=== PATIENT | female | born 1990 | race Caucasian/White ===

== ENCOUNTER → 2017-11-22 14:07 | Outpatient (CLI) | payer OTHER, SELFPAY ==
[2017-11-22 17:37] LABS: Chlamydia Trachomatis by PCR Negative (Negative); Neisserai gonorrhoeae by PCR Negative (Negative); Probe Check PASS; Sample Adequacy Control PASS; Specimen Processing Control PASS
[2017-11-27 15:29] LABS: HPV Reflexed? NOT INDICATED
== END ==
PROVIDERS: Visit Provider Obstetrics & Gynecology
DX: Z34.81 Encounter for supervision of other normal pregnancy, first trimester (principal); Z12.4 Encounter for screening for malignant neoplasm of cervix; Z11.3 Encounter for screening for infections with a predominantly sexual mode of transmission
CPT/HCPCS: 87491; 87591; 88175; G0145

== ENCOUNTER → 2017-12-23 14:46 | Outpatient (CLI) | payer OTHER, SELFPAY ==
[2017-12-23 15:46] LABS: Color, Urine Yellow (Yellow); Glucose, Dipstick Normal (Normal); Ketone-Dipstick Negative (Negative); Leukocyte Esterase-Dipstick Negative /ul (Negative); Nitrite-Dipstick Negative (Negative); Occult Blood-Urine Negative /ul (Negative); Protein-Dipstick Negative (Negative); Urine Bilirubin Dipstick Negative (Negative); Urine Clarity Clear (Clear); Urine Urobilinogen Normal (Normal)
[2017-12-23 15:57] LABS: Absolute Lymphocyte Count 1.76 X10^3/ul (0.83-4.51); Absolute Neutrophil Count 7.8 X10^3/uL (2.0-7.7); Basophil# 0.03 X10^3/uL; Basophil% 0.3 % (0-1); Eosinophil# 0.09 X10^3/uL; Eosinophils% 0.9 % (0-5); Hematocrit 38.9 % (37-47); Hemoglobin 13.1 g/dl (12.0-15.0); Lymphocyte # 1.76 X10^3/ul (4.0); Lymphocyte % 17.4 % (19-41); Mean Corp Hgb Conc 33.7 g/gl (32-36); Mean Corpuscular Hgb 29.9 pg (27.0-32.0); Mean Corpuscular Volume 88.8 fL (81-99); Monocyte# 0.46 X10^3/uL; Monocyte% 4.5 % (0-10); Neutrophil # 7.76 X10^3/uL (2.7-7.7); Neutrophil % 76.7 % (47-70); Platelet Count 181 K/mm3 (150-450); RBC Distribution Width CV 13.4 % (11.6-14.6); RBC Distribution Width SD 43.6 fl (35.1-43.9); Red Blood Count 4.38 M/mm3 (4.2-5.4); White Blood Count 10.1 K/mm3 (4.4-11.0)
[2017-12-23 16:00] LABS: POSITIVE COUNT NO; POSITIVE DIFFERENTIAL NO; POSITIVE MORPHOLOGY NO
[2017-12-23 16:12] LABS: Thyroid Stim Hormone (TSH) 0.89 uIU/mL (0.358-3.74)
[2017-12-23 17:04] LABS: HIV - WCH Non-Reactive (Nonreactive); Rubella IgG 204.5 IU/mL
[2017-12-25 11:33] LABS: HEPATITIS B SURFACE AG Negative (Negative); Hep C Antibodies <0.1 s/co ratio (0.0-0.9)
[2017-12-27 02:59] LABS: Prenatal RPR NONREACTIVE (NONREACTIVE)
== END ==
PROVIDERS: Visit Provider Obstetrics & Gynecology
DX: Z34.82 Encounter for supervision of other normal pregnancy, second trimester (principal)
CPT/HCPCS: 36415; 81002; 84443; 85025; 86703; 86762; 86803; 87340

== ENCOUNTER → 2018-03-11 15:12 | Outpatient (CLI) | payer OTHER, SELFPAY ==
[2015-05-18 20:23] VITALS: BMI 31.1
[2018-03-11 16:20] LABS: Glucose Challenge Gest 1H 50g 96 mg/dL (70-140)
[2018-03-11 16:41] LABS: Hematocrit 35.9 % (37-47); Hemoglobin 11.9 g/dl (12.0-15.0); Mean Corp Hgb Conc 33.1 g/gl (32-36); Mean Corpuscular Hgb 30.9 pg (27.0-32.0); Mean Corpuscular Volume 93.2 fL (81-99); Mean Platelet Vol. 10.8 fl (6.2-12.0); Platelet Count 169 K/mm3 (150-450); RBC Distribution Width CV 13.8 % (11.6-14.6); RBC Distribution Width SD 46.7 fl (35.1-43.9); Red Blood Count 3.85 M/mm3 (4.2-5.4); White Blood Count 10.5 K/mm3 (4.4-11.0)
[2018-03-11 16:45] LABS: Scan Indicated on CBC? Y/N NO
--- OUTSIDE RECORDS SUMMARY | 2018-06-13 03:36 | XMS RPT_ITS ---
:1990 Author Organization OHIP Care Team Providers Name Role Phone Paige Dominique Attending Unavailable Paige Dominique Attending Unavailable Primay Care Physicia, No Primary Care Unavailable Paige Dominique Attending Unavailable PROBLEMS PROBLEMS DATE TYPE CONDITION / CODE ATTENDING STATUS SOURCE 03/12/2018 Unknown Z34.83 - Encounter Paige Dominique Active [facility] for supervision of [facility] other normal Hospital , third Repository trimester / Z34.83(ICD-10) 12/23/2017 Unknown Z34.82 - Encounter Paige Dominique Active [facility] for supervision of [facility] other normal Hospital , second Repository trimester / Z34.82(ICD-10) 11/22/2017 Unknown Z12.4 - Encounter Paige Dominique Active [place] for screening for Community malignant neoplasm Hospital of cervix / Repository Z12.4(ICD-10) 11/22/2017 Unknown Z11.3 - Encounter Paige Dominique Active [place] for screening for Community infections with a Hospital predominantly Repository sexual mode of transmission / Z11.3(ICD-10) 11/22/2017 Unknown Z34.81 - Encounter Paige Dominique Active [facility] for supervision of [facility] other normal Hospital , first Repository trimester / Z34.81(ICD-10) PROCEDURES PROCEDURES No Procedure Records FoundRESULTS RESULTS GLUCOSE CHALLENGE GEST Collected: 03/11/2018 Status: F Source: [facility] 1H 50G 11[facility] TYPE CODE TESTS RESULT OUT OF RANGE REFERENCE UNITS LAB L501.0250 70-140 mg/dL Normal GLU GEST 96 50g 1H Performed By: #### L501.0250 #### [facility] [address] [place], [place], [address] CBC-COMPLETE BLOOD CNT Collected: 03/11/2018 Status: F Source: [place] NO DIFF 11:30 AM [facility] REPOSITORY TYPE CODE TESTS RESULT OUT OF RANGE REFERENCE UNITS LAB L100.1000 4.4-11.0 K/mm3 Normal WBC 10.5 LAB L100.1200 4.2-5.4 M/mm3 Low RBC 3.85 LAB L100.1300 12.0-15.0 g/dl Low HGB 11.9 LAB L100.1400 37-47 % Low HCT 35.9 LAB L100.1500 81-99 fL Normal MCV 93.2 LAB L100.1600 27.0-32.0 pg Normal MCH 30.9 LAB L100.1700 32-36 g/gl Normal MCHC 33.1 LAB L100.1810 11.6-14.6 % Normal RDW CV 13.8 LAB L100.1820 35.1-43.9 fl High RDW SD 46.7 LAB L100.1900 150-450 K/mm3 Normal PLT 169 LAB L100.2000 6.2-12.0 fl Normal MPV 10.8 Performed By: #### L100.0500 #### [facility] [address] [place], [place], [address] URINALYSIS, ROUTINE Collected: 12/23/2017 Status: F Source: [place] (DIPSTICK) 2:48 PM [facility] REPOSITORY Order Comment: How was Urine Obtained? Urine, Random TYPE CODE TESTS RESULT OUT OF RANGE REFERENCE UNITS LAB L400.3000 Yellow COLOR Normal Yellow LAB L400.3050 Clear Normal CLARITY Clear LAB L400.3200 Normal mg/dl Normal GLUCOSE, UR Normal LAB L400.3300 Negative mg/dL Normal BILIRUBIN URINE Negative LAB L400.3400 Negative mg/dl Normal KETONE UR Negative LAB L400.3465 1.002-1.030 Normal SP.GR. DIPSTX 1.010 LAB L400.3550 5.0 - 8.0 pH UR Normal 7.0 LAB L400.3600 Negative mg/dl PROT Normal DIPSTX Negative LAB L400.3700 Normal mg/dl Normal UROBILI Normal LAB L400.3750 Negative Normal NITRITE UR Negative LAB L400.3780 Negative /ul Normal OCCULT BLOOD-UR Negative LAB L400.3800 Negative /ul LEUK Normal ESTERASE Negative Performed By: #### L400.2010 #### [facility] [address] [place], [address] CBC W/DIFF, AUTOMATED Collected: 12/23/2017 Status: F Source: [place] 2:48 PM [facility] REPOSITORY TYPE CODE TESTS RESULT OUT OF RANGE REFERENCE UNITS LAB L100.1000 4.4-11.0 K/mm3 Normal WBC 10.1 LAB L100.1200 4.2-5.4 M/mm3 Normal RBC 4.38 LAB L100.1300 12.0-15.0 g/dl Normal HGB 13.1 LAB L100.1400 37-47 % Normal HCT 38.9 LAB L100.1500 81-99 fL Normal MCV 88.8 LAB L100.1600 27.0-32.0 pg Normal MCH 29.9 LAB L100.1700 32-36 g/gl Normal MCHC 33.7 LAB L100.1810 11.6-14.6 % Normal RDW CV 13.4 LAB L100.1820 35.1-43.9 fl Normal RDW SD 43.6 LAB L100.1900 150-450 K/mm3 Normal PLT 181 LAB L100.2000 6.2-12.0 fl Normal MPV 11.0 LAB L100.2100 47-70 % High NEUT% 76.7 LAB L100.2200 19-41 % Low LY% 17.4 LAB L100.2300 0-10 % Normal MONO% 4.5 LAB L100.2400 0-5 % Normal EO% 0.9 LAB L100.2500 0-1 % Normal BASO% 0.3 LAB L100.2550 0.0-0.9 % Normal IM GRAN % 0.200 Result Comment: IG% - Immature Granulocytes (promyelocytes, myelocytes and metamyelocytes) > 1% indicates that a LEFT SHIFT is Present. LAB L100.2620 2.0-7.7 X10 3/uL High Absolute Neut 7.8 LAB L100.2720 0.83-4.51 X10 3/ul Normal Absolute Lymph 1.76 Performed By: #### L100.0100 #### [facility] [facility] [place], [place], [id number] THYROID STIM HORMONE Collected: 12/23/2017 Status: F Source: [place] (TSH) 2:48 PM [facility] REPOSITORY TYPE CODE TESTS RESULT OUT OF RANGE REFERENCE UNITS LAB L501.9520 0.358-3.74 uIU/mL Normal TSH 0.89 Performed By: #### L501.9520 #### [facility]. [place], [place], [id number] RUBELLA IGG Collected: 12/23/2017 Status: F Source: [place] 2:48 PM [facility] REPOSITORY TYPE CODE TESTS RESULT OUT OF RANGE REFERENCE UNITS LAB L509.4000 IU/mL Normal Rubella IgG 204.5 Result Comment: Antibody results Interpretation of Immune Status < 5 IU/ml Presumed Non-immune 5 - < 10 IU/ml Equivocal > or = 10 IU/ml Presumed Immune Performed By: #### L509.4000, L3890.6005 #### [facility]. [place], [place], [id number] HIV - [facility] Collected: 12/23/2017 Status: F Source: [place] 2:48 PM [facility] REPOSITORY TYPE CODE TESTS RESULT OUT OF RANGE REFERENCE UNITS LAB L3890.6005 Nonreactive Normal HIV - [facility] Non-Reactive Performed By: #### L509.4000, L3890.6005 #### [facility] [place], [place], [address] T AND S-NO Collected: 12/23/2017 Status: F Source: [place] CHARGE W/PNP 2:48 PM [facility] REPOSITORY Order Comment: Reason for Type AND Screen/Red Cells: Surgery? N TYPE CODE TESTS RESULT OUT OF RANGE REFERENCE UNITS LAB B10.0800 O Normal BLOOD POSITIVE TYPE GEL LAB B100.4050 Normal Ab SCREEN NEGATIVE GEL Performed By: #### B100.7550 #### [facility] [address] [facility] [place], [place], [id number] HEPATITIS B SURFACE Collected: 12/23/2017 Status: F Source: [place] AG 2:48 PM [facility] REPOSITORY TYPE CODE TESTS RESULT OUT OF RANGE REFERENCE UNITS LAB L3100.0400 Negative Normal HB Negative SURF AG Result Comment: Performed at: [facility] [id number] Tax[employer] Proprietor: Leon Ornelas PhD, Phone: [phone] Performed By: #### L3100.0390, L3100.0625 #### [facility] (refer to report for specific site) refer to report for address and phone number HEPATITIS C ANTIBODIES Collected: 12/23/2017 Status: F Source: [place] 2:48 PM [facility] REPOSITORY TYPE CODE TESTS RESULT OUT OF RANGE REFERENCE UNITS LAB L3100.0650 0.0-0.9 s/co ratio Normal HEP C AB <0.1 Result Comment: Negative: < 0.8 Indeterminate: 0.8 - 0.9 Positive: > 0.9 The CDC recommends that a positive HCV antibody result be followed up with a HCV Nucleic Acid Amplification test (635071). Performed By: #### L3100.0390, L3100.0625 #### [facility] (refer to report for specific site) refer to report for address and phone number RPR Collected: 12/23/2017 Status: F Source: [place] 2:48 PM [facility] REPOSITORY TYPE CODE TESTS RESULT OUT OF REFERENCE UNITS RANGE LAB L700.5100 NONREACTIVE Normal RPR NONREACTIVE Performed By: #### L700.5100 #### [facility] [place], [place], [id number] CT/NG [facility] BY PCR Collected: 11/22/2017 Status: F Source: [place] 11:45 AM [facility] REPOSITORY TYPE CODE TESTS RESULT OUT OF RANGE REFERENCE UNITS LAB L8200.2100 Negative Normal Chlam Negative Trac PCR LAB L8200.2200 Negative Normal NG by Negative PCR Performed By: #### L8200.2000 #### [facility] [place], [place], [id number] PAP I-G W/RFX HRHPV Collected: 11/22/2017 Status: F Source: [place] 11:45 AM [facility] REPOSITORY Order Comment: CYTOLOGY INFORMATION: - CLINICAL INFORMATION: - DATE LMP/MENOPAUSE: 08/24/17 LMP - COLLECTION VIAL: Thin Prep Vial - ADVERTISING ACCOUNT MANAGER SOURCE: CERVICAL/ENDOCERVICAL - COLLECTION TECHNIQUE: BRUSH/SPATULA Specimen Comment: [id number] Specimen Comment: No. of containers..01 ThinPrep Vial TYPE CODE TESTS RESULT OUT OF RANGE REFERENCE UNITS LAB L7400.0800 . Normal DIAGN Comment Result Comment: NEGATIVE FOR INTRAEPITHELIAL LESION AND MALIGNANCY. LAB L7400.0900 . Normal ADEQ Comment Result Comment: Satisfactory for evaluation. Endocervical and/or squamous metaplastic cells (endocervical component) are present. LAB L7400.1400 . Normal PERFORM Comment Result Comment: Azeb Robbins, [employer] Press Set Up Operator LAB L7400.2575 . Normal TEST METHOD Comment Result Comment: This liquid based ThinPrep(R) pap test was screened with the use of an image guided system. LAB L7400.2600 . Normal . COMM LAB L7400.2700 . Normal PAPSMR Comment Result Comment: The Pap smear is a screening test designed to aid in the detection of premalignant and malignant conditions of the uterine cervix. It is not a diagnostic procedure and should not be used as the sole means of detecting cervical cancer. Both false-positive and false-negative reports do occur. LAB L7400.2800 . Normal HPV RFLX Comment Result Comment: The HPV DNA reflex criteria were not met with this specimen result therefore, no HPV testing was performed. Performed at: [address] [id number] Tax[employer] Proprietor: Yeny Alexander MD, Phone: [phone] Performed By: #### L7400.0350 #### [facility] for specific [facility] refer to report for address and phone number ALLERGIES ALLERGIES DATE TYPE / CODE NAME / CODE REACTION SEVERITY SOURCE 05/18/2015 Drug No Known Unknown [facility] Allergy/4160 Allergies/F00 Hospital [address](SNOMED [id number](RXNOR Repository CT) M) ENCOUNTERS ENCOUNTERS ADMIT/DISCHARGE ACCOUNT ADMITTING ENCOUNTER LOCATION SOURCE NUMBER CLASS 03/11/2018 [id number] Ambulatory [place] [facility] ing:LABSPEC Repository 12/23/2017 [id number] Amb[facility] [place] [facility] ing:WOBLAB Repository 11/22/2017 [id number] Ambulatory [place] 1 [facility] ing:LABSPEC Repository PAYERS PAYERS ENCOUNTER GUARANTOR PAYER SUBSCRIBER SOURCE 03/11/2018 Marie Ramos50 Primary ROBERT MILLERDOB: Marlee Durstine Insurance:[employer] [id number] [facility] [place] [place] icy Number: Hospital [id number]: [phone] [id number] Repository [phone] (HP) Date:[id number] [address] [address]OB: 03/11/2018 Secondary NOT GIVENUNK [place] Insurance:SELF PAY [facility] Number: Effective Repository Date:2018-03-11 12/23/2017 Marie Ramos50 Primary ROBERT MILLERDOB: [place] Durstine Insurance:[employer] [id number] [place] icy Number: Hospital [id number]: [phone] [id number] Repository [phone] (HP) Date:[id number] [address] [address]QR: 12/23/2017 Secondary NOT GIVENUNK [place] Insurance:SELF PAY [facility] Number: Effective Repository Date:2017-12-23 11/22/2017 Marie [id number] Primary ROBERT MILLERDOB: [place]lee Durstine Insurance:[employer] [id number] [place] icy Number: Hospital [id number]: [phone] [id number] Repository [phone] (HP) Date:[id number] [address] [address]FF: 11/22/2017 Secondary NOT GIVENUNK [place] Insurance:SELF PAY [facility] Number: Effective Repository Date:2017-11-22
== END ==
PROVIDERS: Visit Provider Obstetrics & Gynecology
DX: Z34.83 Encounter for supervision of other normal pregnancy, third trimester (principal)
CPT/HCPCS: 36415; 82950; 85027

== ENCOUNTER → 2018-05-06 15:33 | Outpatient (CLI) | payer OTHER, SELFPAY ==
[2015-05-18 20:23] VITALS: BMI 31.1
== END ==
PROVIDERS: Visit Provider Obstetrics & Gynecology
DX: Z36.85 Encounter for antenatal screening for Streptococcus B (principal)
CPT/HCPCS: 87081

== ENCOUNTER 2018-06-03 02:20 | Inpatient (IN) | payer OTHER, SELFPAY ==
[2018-06-03] VITALS (27 sets, daily range): BP systolic 87–130; BP diastolic 38–75; PULSE 87–117; RESP 16–18; TEMP 36.3–37.6; O2SAT 92–100; BMI 30.6
[2018-06-03] MEDS: Lactated Ringers 1,000 ML 50 ML IV ×2 (02:50→03:55)
[2018-06-03 03:07] LABS: Hematocrit 41.7 % (37-47); Hemoglobin 13.8 g/dl (12.0-15.0); Mean Corp Hgb Conc 33.1 g/gl (32-36); Mean Corpuscular Hgb 30.8 pg (27.0-32.0); Mean Corpuscular Volume 93.1 fL (81-99); Mean Platelet Vol. 11.2 fl (6.2-12.0); Platelet Count 182 K/mm3 (150-450); RBC Distribution Width CV 13.5 % (11.6-14.6); Red Blood Count 4.48 M/mm3 (4.2-5.4); White Blood Count 14.6 K/mm3 (4.4-11.0)
[2018-06-03 03:08] LABS: Scan Indicated on CBC? Y/N NO
[2018-06-03] MEDS: fentaNYL-bupivacaine (epidural) 100 ML BAG EPIDURAL (03:42)
--- NOTE | 2018-06-03 04:22 | PLAC_PTH ---
PATIENT: MARIE GROSS LOC: WP U#:[id number] AGE/SX: 28/F ROOM: WP003 RE06/03/[address]: Dr. Paige Dominique MD : 1990 BED: 1 DIS: 06/05/2018 SPEC #: [id number] RECD: 06/03/18 08:07 STATUS: GLORIA GLADYS #: [id number] GENARO: 06/03/18 04:[address]: Paige Dominique DEPT: SURGICAL PATHOLOGY RECD BY: Axel Amador Tissues: Placenta, NOS Procedures: Surgery Specimen Level V HEADER OPERATION: Repeat section PRE-OP DIAGNOSIS: Onset of labor; uterine rupture TISSUE SUBMITTED: Placenta MICROSCOPIC DIAGNOSIS Arroyo placenta (509 gm): Umbilical cord - trivascular with no inflammation. Placental membranes - focal acute decidual inflammation. Placental disc - mild Chicho-Omi change and intervillous congestion. AM:primo 06/05/18 MICROSCOPIC DESCRIPTION Slides are reviewed. GROSS DESCRIPTION SPECIMEN: PLACENTA / CLINICAL INFORMATION: A. Weight: 3.775 kg B. Gestational Age: 40 weeks C. Sex: Female PLACENTAL WEIGHT (POST FIXATION): 509 gm PLACENTAL DIMENSIONS: 22 x 18 x 2.2 cm PLACENTAL SHAPE: Usual ovoid PLACENTAL WEIGHT FOR GESTATIONAL AGE: Within 10-99th percentile MEMBRANES - Present, fragmented A. Insertion: Marginal B. Site of rupture from edge: Distance of rupture cannot be assessed. C. Color of membrane: Rojo-mucoidy D. Abnormalities: None UMBILICAL CORD - Present A. Color: Rojo-hall B. Insertion: Central C. Length: 21 cm D. Diameter: 0.8 to 1.2 cm E. Number of vessels: Three F. Abnormalities: None PLACENTAL DISC - Present A. Color of surface: Rojo-hall B. surface abnormalities: None C. Maternal cotyledons: Intact with minimal tears D. Attached retro placental clot: No clot E. Cut surface: Dark red and spongy F. Lesions: None G. Separate clot: Absent SECTIONS SUBMITTED: 1. Membrane roll 2. Cord, maternal end 3. Cord, end 4. Placental disc, and maternal surfaces 5. Placental disc, and maternal surfaces 6. Placental disc, and maternal surfaces RAY:primo 06/04/18 TC:2 CPT: 56200
[2018-06-03] MEDS: Oxytocin 30 units/NS 500 ml 30 UNITS/500 ML IV.SOLN 167 UNITS IV (04:23)
--- NOTE | 2018-06-03 05:08 | DCINST_ITS ---
Discharge Diet: No Restrictions Discharge Activity: May not drive while taking narcotic pain medications., May Shower, May Take a Tub Bath May resume sexual activity in: 4-6 weeks Lifting Restrictions: 20 pounds Additional Activity Instructions:: Nothing in the vagina for 4-6 weeks. You may return to work/school in 6 weeks. Call your doctor if your incision/area has: Continuous Slow Oozing, Sudden Increased Bleeding, Increased Pain/ Swelling, Increased Redness, Foul Smelling Discharge Call your doctor if you observe: Fever of 101 or Higher, Inability to urinate, Inability to have a bowel movement, Using more than one pad per hour Additional Instructions: If you experience any of the following, contact your healthcare provider. * Bleeding that soaks a pad every hour for 2 hours * Unrelieved incision or abdominal pain * Swelling, redness, discharge or bleeding from your incision or episiotomy site * Your incision begins to separate * Problems urinating (including inability to urinate or burning while urinating). * Visual changes * Severe headache * Flu-like symptoms * Pain or redness in one of both of your breasts * Pain, warmth, tenderness or swelling in your legs, especially the calf area * Frequent nausea and vomiting * Symptoms of depression or anxiety If you experience any of the following, call 911 or go to the nearest Emergency Room. * Chest pain * Problems breathing * Seizure activity * Partial or complete paralysis of a body part, slurred speech, weakness or drooping of the face, or a sudden inability to walk or hold your balance Allergies/Adverse Reactions: Allergies No Known Allergies Allergy (Verified 05/18/15 20:23) Medications to take at Discharge Vit No.130/Iron/Folic [ Vitamins] 1 each PO DAILY 05/17/15 Docusate Sodium [Colace] 100 mg PO BID PRN PRN #60 cap 06/03/18 Oxycodone [Oxyir] 5 mg PO Q6H PRN PRN 7 Days #20 tab 06/03/18 The following prescriptions were given: Oxycodone [Oxyir] 5 mg PO Q6H PRN PRN 7 Days #20 tab PRN Reason: Severe Pain (6-01/01) Docusate Sodium [Colace] 100 mg PO BID PRN PRN #60 cap PRN Reason: Constipation Follow-Up: Call to make an appointment with your doctor for an incision check in 1-2 weeks. You will also need a 6 week post- follow up appointment. Test results from this visit will be discussed in further detail at your follow- up appointment, if applicable. Please Follow Up With: Paige Dominique MD - [phone] When: Call to make an appointment for an incision check in 2 weeks.
[2018-06-03] MEDS: Ketorolac 30 MG/ML Syringe IV ×3 (07:01→18:05)
[2018-06-03 07:08] LABS: Hematocrit 37.4 % (37-47); Hemoglobin 12.4 g/dl (12.0-15.0); Mean Corp Hgb Conc 33.2 g/gl (32-36); Mean Corpuscular Hgb 31.2 pg (27.0-32.0); Mean Corpuscular Volume 94.2 fL (81-99); Mean Platelet Vol. 11.5 fl (6.2-12.0); Platelet Count 198 K/mm3 (150-450); RBC Distribution Width CV 13.5 % (11.6-14.6); RBC Distribution Width SD 46.4 fl (35.1-43.9); Red Blood Count 3.97 M/mm3 (4.2-5.4); White Blood Count 23.3 K/mm3 (4.4-11.0)
[2018-06-03 07:10] LABS: Scan Indicated on CBC? Y/N NO
--- NOTE | 2018-06-03 07:42 | PCM.PN.BLA ---
Progress Note PREOP SUMMARY: 40 3/7 wk presents in labor for . Prior C/S for breech presentation. Very uncomfortable with UCs and pain over lower abdomen, planning epidural AVSS EFM 140-150s with ccels to 160-180s. Intermittent decelerations noted One to 110s x 5 min with intermittent return to baseline , and variability noted during this decel. These decelerations appeared to resolve with position change to L side. UCs irregular and difficult to trace. CX 5 cm per RN check. Planned epidural with AROM then and placement of IUPC and scalp lead to better monitor UCs and FHR with ? intermittent decelerations. (variable / early / late?) Epidural placed After epidural placed and patient more comfortable, FHR deceleration noted approx 0410 to 60 bpm. Pt to hands and knees Short recovery of FHR with scalp stim to 90s return to 60s Decision for C/S at 0412. Back to room by 0414 and OB RN EMERGENCY called. Delivery of by 0422. See op note
--- NOTE | 2018-06-03 07:51 | PN_ITS ---
Progress Note PREOP SUMMARY: 40 3/7 wk presents in labor for . Prior C/S for breech presentation. Very uncomfortable with UCs and pain over lower abdomen, planning epidural AVSS EFM 140-150s with ccels to 160-180s. Intermittent decelerations noted One to 110s x 5 min with intermittent return to baseline , and variability noted during this decel. These decelerations appeared to resolve with position change to L side. UCs irregular and difficult to trace. CX 5 cm per RN check. Planned epidural with AROM then and placement of IUPC and scalp lead to better monitor UCs and FHR with ? intermittent decelerations. (variable / early / late?) Epidural placed After epidural placed and patient more comfortable, FHR deceleration noted approx 0410 to 60 bpm. Pt to hands and knees Short recovery of FHR with scalp stim to 90s return to 60s Decision for C/S at 0412. Back to room by 0414 and OB OUTPATIENT PHYSICAL THERAPIST ASSISTANT called. Delivery of by 0422. See op note
--- NOTE | 2018-06-03 07:52 | PCM.OPRPT ---
Report of Operation Pre-Operative Diagnosis: 40 3/7 wk prior C/S planned . bradycardia with suspected dehiscence of uterine scar Post-Operative Diagnosis: Same and Uterine scar dehiscence Surgery/Procedure Performed:: Repeat C/S with repair of uterine rupture and extension to L vaginal wall advanced nursing professor: Daniel Finnegan MD called in after baby delivered advanced nursing professor: Iveth Watson Type of Anesthesia:: Epidural/Supplement Anesthesiologist: Carloz Beckman Specimen's removed: Placenta to path. Drains: Hall placed after surgery Estimated Blood Loss (mL): 1000 Fluids Replaced: LR Delivery Classification: Stat Final STEFFI: 05/31/18 Final STEFFI Source: US <20 weeks Gestational age: 40 Weeks and 3 Days doctor who attended delivery (if requested by OB): Shannon Laws Indications for : - - bradycardia. Prior C/S attempt suspected uterine scar dehiscence Description of Procedure: Findings: At entry into peritoneum. Bloody fluid was noted. Vtx delivered through uterine incision dehiscence. Moderate meconium stained fluid was noted. Arroyo viable female in vertex presentation. Apgars 1/8/9, Baby weight: 8# 5 oz There was a disfigured ruptured uterus with an laceration extending to the L vaginal wall. The R adnexa was edematous appearing. The fallopian tubes and ovaries otherwise appeared normal bilaterally. Description of Procedure: Narrative account: With the onset of the bradycardia, patient was advised that emergent C/S is indicated. The OB AUTOMOTIVE GLASS SPECIALIST was called and the patient was taken back to the operating room with an IV running and an epidural in placed. No Hall had been inserted at this point, but she had voided just prior to epidural placement for labor. She was placed in dorsal supine position, and splash prepped with Betadine A sterile drape was applied and after quick determination that the epidural was adequate an incision as made through the prior incision at the lower abdomen using the knife. The incision was carried down to the rectus fascia which was extended bilaterally using curved Cristina scissors and blunt dissection. The superior aspect of the fascial incision was grasped with Leonor clamps and tented up and the underlying rectus abdominal muscles were dissected free. In a similar manner, the inferior aspect of the facial incision was grasped with Leonor clamps tented up and the underlying rectus abdominal muscles were dissected free. The rectus abdominis muscles were in the midline by blunt dissection and the peritoneum was entered by blunt dissection high in the incision. Immediate return of bloody fluid was noted, and meconium stained fluid. The peritoneum was stretched laterally and a bladder blade was inserted. The bladder was edematous but retracted back out of the way. The fetus was noted with vertex outside the uterine dehiscence. The infant was quickly delivered and bulb suctioned. The cord clamped x two and cut and the baby was then passed off to the nurse, acidizer helper, and RT awaiting delivery. The baby had very poor tone and no respiratory effort. The placenta was delivered. The uterus was exteriorized and cleared of clots and debris and multiple ring forceps and Kan clamps were used to tag the margins of the incision including the extension to the L vaginal wall. The extension at the L vaginal wall was repaired in several layers of 1-0 vicryl with additional figure of eight sutures placed as needed for adequate hemostasis. A moistened laparotomy sponge was then packed over this area as the remainder of the uterine incision (including a small extension towards the L uterine cornua) was repaired with a 1-[address] Finnegan arrived and assisted in the remainder of the uterine repair. The laparotomy sponge was removed from the L side of the pelvis and the extension was again inspected and oversewn with a third layer of 1-0 Vicryl in a running locked fashion. There was minimal oozing noted at this point but nothing to oversew. The remainder of the uterine incision was then oversewn with 1-0 Monocryl. The peritoneal edges were reapproximated over the incision with a series of interrupted horizontal mattress stitches of 1-0 Vicryl. The upper abdomen , gutters were cleared of clots and debris then using moistened laparotomy sponges. Floseal was placed over the extension at the L pelvis / to the L vaginal wall. At this point the uterus was returned to the abdominal cavity. The incision at the uterus was inspected. . Salty was applied along the entire uterine incision for continued hemostasis. Adequate hemostasis was noted. The peritoneal edges were reapproximated in the midline along with the rectus abdominis muscles with a series of vertical mattress stitches of 1-0 Vicryl. There was bleeding noted at this layer high in the incision but with the vertical mattress stitches excellent hemostasis was noted. rista was applied to this layer. The fascia was closed in a running nonlocked fashion with a Stratofix. The Subcutaneous fatty tissue was dusted with Salty to prevent seroma formation. This layer was then reapproximated in a single layer closure of running 3-0 Vicryl to eliminate space. The skin edges were closed in a Subcuticular stitch of 4-0 Monocryl. The incision was cleansed. Cavilon, Steristrips, and Mepilex dressing were applied to the skin . The patient was then transferred to the recovery room bed in stable condition after tolerating the procedure well. Sponge, lap, needle and instrument counts correct times two. Medications given preop and intraoperatively included: Ancef 2 gm IV given after surgery was underway in the operating room. The patient also received Pitocin given IV after cord clamp, and Toradol 30 mg IV times one. For a complete listing of medications given preop and intraoperatively, please see the anesthesia record. Amniotic Membrane Rupture Type: Artificial Amniotic Fluid Description: Moderate meconium Placenta Disposition: Sent to Pathology Specimen(s) sent to pathology: placenta, cord gases Fluids Replaced: LR Cord Vessel Description: 3 Vessels Esitmated Blood Loss (ml): 1000 Gender: Female (1 minute): 1 (5 minute): 8 Delayed cord clamping: No Pre-op Antibiotic Given: Ancef 2 grams IV x1 - started when in OR after case started Complications: - - Uterine dehiscence, in abdomen with blood noted in abdomen upon entering the peritoneal cavity. Extension of the uterine scar dehiscence as laceration to L vaginal wall. - Admit VTE Documentation VTE Present on Admission: No VTE Mechan Device Prophylaxis: SCD's
--- NOTE | 2018-06-03 08:00 | NURSING ---
epidural catheter removed by this RN. blue tip intact. pt tolerated well
[2018-06-03] MEDS: Lactated Ringers 1,000 ML 100 ML IV ×2 (09:25→19:27)
[2018-06-03] MEDS: Nalbuphine 10 MG/ML Ampul 5 MG IV (10:19)
--- NOTE | 2018-06-03 10:23 | NURSING ---
nubain 5mg iv given for pt's c/o itching, pt resting in bed no further c/o voiced
[2018-06-03] MEDS: Cefazolin 1 GM/50 ML BAG IV ×2 (12:42→20:33)
[2018-06-04] VITALS: BP 98/55; PULSE 104; RESP 18; TEMP 37.7; O2SAT 96
[2018-06-04] MEDS: Ketorolac 30 MG/ML Syringe IV ×4 (00:01→18:51)
[2018-06-04 02:00] VITALS: PULSE 97; RESP 16; O2SAT 98
[2018-06-04 04:20] VITALS: BP 95/58; PULSE 98; RESP 16; TEMP 36.9; O2SAT 99
[2018-06-04] MEDS: 0.9% Saline Lock 10 ML Syringe IV ×5 (04:21→18:51)
[2018-06-04] MEDS: oxyCODONE 5 MG Tablet PO ×3 (04:45→18:50)
[2018-06-04 06:18] LABS: Hematocrit 30.3 % (37-47); Hemoglobin 9.9 g/dl (12.0-15.0); Mean Corp Hgb Conc 32.7 g/gl (32-36); Mean Corpuscular Hgb 31.2 pg (27.0-32.0); Mean Corpuscular Volume 95.6 fL (81-99); Mean Platelet Vol. 10.8 fl (6.2-12.0); Platelet Count 139 K/mm3 (150-450); RBC Distribution Width CV 13.4 % (11.6-14.6); RBC Distribution Width SD 44.7 fl (35.1-43.9); Red Blood Count 3.17 M/mm3 (4.2-5.4); White Blood Count 15.1 K/mm3 (4.4-11.0)
[2018-06-04 06:19] LABS: Scan Indicated on CBC? Y/N NO
--- NOTE | 2018-06-04 08:10 | PCM.PN.OB ---
Subjective: POD#1 Stat C/S for uterine dehiscence. Attempitng . Doing well. Minimal pain. baby is nursing well. states she didn't have enough milk with first baby and is concerned about this. Offered and accepted assistance. Will work on this with nurses. - Physical Exam General: Alert, Oriented x3, Cooperative, No apparent distress HEENT: Atraumatic Neck: Supple Abdomen: Soft - Fundus firm minimally tender as anticipated postop Skin: Incision - Mepilex deressing in place. CDI. no erythema Neurological: Cranial nerves II-XII grossly intact Psych/Mental Status: Normal Affect Vital Signs Temp Pulse Resp BP Pulse Ox 98.5 F 98 16 95/58 L 99 06/04/18 04:20 06/04/18 04:20 06/04/18 04:20 06/04/18 04:20 06/04/18 04:20 Oxygen Flow Rate (L/min) 1 Oxygen Delivery Method Room Air Weight: 80.9 kg Body Mass Index (BMI) 30.6 Intake and Output for Last 24 Hours 03// 03//06/04/18 23:59 23:59 23:59 Intake Total 1685 / 1685 Output Total 1550 / 1550 2600 / 2600 Balance 135 / 135 -2600 / -2600 Laboratory Tests Past 24 Hrs 06/04/18 06:00 WBC 15.1 H RBC 3.17 L Hgb 9.9 L Hct 30.3 L MCV 95.6 MCH 31.2 MCHC 32.7 RDW 13.4 RDW Differential 44.7 H Plt Count 139 L MPV 10.8 Medical Necessity - Tobacco Use Smoking Status: Never smoker Assessment/Plan All Active Problems PROM (premature rupture of membranes) (Acute) POD#1 Stat C/S Uterine abruption. Attempting 1.) Stable postop. Leukocytosis resolving, likely reactive. Hall removed for voiding trial, Inc diet and activity as tolerated. continue care. assistance prn. 2. ) Acute blood loss anemia. Hgb as anticipated
[2018-06-04 08:30] VITALS: BP 104/63; PULSE 98; RESP 16; TEMP 36.3
[2018-06-04] MEDS: Senna/Docusate Sodium 1 Tablet PO (12:29)
[2018-06-04 14:00] VITALS: BP 102/57; PULSE 100; RESP 16; TEMP 36.7
[2018-06-04 20:58] VITALS: BP 102/56; PULSE 95; RESP 17; TEMP 36.7; O2SAT 97
[2018-06-05] MEDS: 0.9% Saline Lock 10 ML Syringe IV (00:32)
[2018-06-05] MEDS: Ketorolac 30 MG/ML Syringe IV (00:32)
[2018-06-05 01:56] VITALS: BP 100/52; PULSE 87; RESP 15; TEMP 36.6; O2SAT 97
[2018-06-05] MEDS: oxyCODONE 5 MG Tablet PO ×2 (06:45→11:49)
[2018-06-05] MEDS: Senna/Docusate Sodium 1 Tablet PO (06:45)
[2018-06-05 08:04] VITALS: BP 107/63; PULSE 95; RESP 18; TEMP 36.8
--- NOTE | 2018-06-05 08:29 | PN_ITS ---
Progress Note IN THE SHOWER
--- NOTE | 2018-06-05 08:29 | PCM.PN.BLA ---
Progress Note IN THE SHOWER
--- NOTE | 2018-06-05 10:40 | PCM.PN.OB ---
Subjective: Pain is controlled, denies heavy lochia. Passing flatus and had a bowel movement. c/o lumpy right breast, but she thinks her milk came in. Infant is nursing well. Objective: avss - Physical Exam General: Alert, Oriented x3, Cooperative, No apparent distress HEENT: Atraumatic, Normocephalic Lungs: Clear to auscultation, Normal air movement Cardiovascular: Regular rate, Regular Rhythm Abdomen: Bowel Sounds Present, Soft, Non Tender, Non-Distended, - - Fundus firm and nontender; incision with steristrips intact Extremities: No edema, No Calf Tenderness Neurological: Neuro grossly intact Psych/Mental Status: Normal Affect, Appropriate, Alert and oriented to time, place, person, mood and affect Vital Signs Temp Pulse Resp BP Pulse Ox 98.2 F 82 16 107/58 L 97 06/05/18 13:37 06/05/18 13:37 06/05/18 13:37 06/05/18 13:37 06/05/18 01:56 Oxygen Flow Rate (L/min) 1 Oxygen Delivery Method Room Air Weight: 80.9 kg Body Mass Index (BMI) 30.6 Intake and Output for Last 24 Hours 06/03/18 06/04/18 06/05/18 23:59 23:59 23:59 Intake Total 1685 / 1685 550 / 550 Output Total 1550 / 1550 3900 / 3900 Balance 135 / 135 -3350 / -3350 Medical Necessity - Tobacco Use Smoking Status: Never smoker Assessment/Plan All Active Problems PROM (premature rupture of membranes) (Acute) 28yo POD#3 s/p RLTCS with BTL doing well. -d/c home
--- NOTE | 2018-06-05 11:24 | PCM.PN.OB ---
Subjective: POD#2 attempt with Stat C/S for uterine incision dehiscence Doing well and plans to go home today. Baby has appt arranged for Sat (2 d from today) Pain control adequate. - Physical Exam General: Alert, Oriented x3, Cooperative, No apparent distress HEENT: Atraumatic Neck: Supple Abdomen: Soft - Fundus firm minimally tender, at 18 cm size Skin: Incision - Mepilex CDI. Neurological: Cranial nerves II-XII grossly intact Psych/Mental Status: Normal Affect Vital Signs Temp Pulse Resp BP Pulse Ox 98.3 F 95 18 107/63 97 / 08:04 06/05/18 08:04 06/05/18 08:04 06/05/18 08:04 06/05/18 01:56 Oxygen Flow Rate (L/min) 1 Oxygen Delivery Method Room Air Weight: 80.9 kg Body Mass Index (BMI) 30.6 Intake and Output for Last 24 Hours 03/12/10 06// 23:59 23:59 23:59 Intake Total 1685 / 1685 550 / 550 Output Total 1550 / 1550 3900 / 3900 Balance 135 / 135 -3350 / -3350 Medical Necessity - Tobacco Use Smoking Status: Never smoker Assessment/Plan All Active Problems PROM (premature rupture of membranes) (Acute) POD#2 Stat C/S Uterine abruption. Attempting 1.) Stable postop. Leukocytosis resolving, likely reactive. Hall removed for voiding trial, Inc diet and activity as tolerated. continue care. assistance prn. 2. ) Acute blood loss anemia. Hgb as anticipated Dischg home today. RTO In 2 wk for postop incision check. prn sooner.
--- NOTE | 2018-06-05 11:27 | PCM.DC.SUM ---
Discharge Date and Diagnosis Date of Admission: 06/03/18 - 40 + wk labor, attempt prior C/S Date of Discharge: 06/05/18 - S/P repeat, stat C/s for uterine rupture - Secondary Discharge Diagnosis Chronic Problems Breech presentation (Chronic) Hospital Course and Treatment Consultations 06/03/18 02:38 Consult: Anesthesia Routine Comment: Reason For Exam: Operations: - - Stat C/S (uterine rupture) Summary of Care Provided: The patient is a 28 year old female at 40 + wk presents in labor with h/o primary C/S prior for breech presentation. Plans . EFM initially with decelerations, patient painful and unable to track UCs well. Planned placement of epidural, then AROM with IUPC and scalp lead placement. After epidural placed, acute change of FHR to bradycardia with FHR in 60s Scalp stim to 90s with return to 60s Taken for stat C/S Findings at C/S included blood in abdomen, vtx out of uterus and uterine rupture with extension to L vaginal wall. female 8# 5 oz. Ap . Extensive repair of uterus. preop hgb 13.8 g/dl postop Hgb 9.9 g/dl Patient's postoperative recovery course uneventful. requesting dischg to home on POD#2 Home and is to return to [facility] in 2 wk for postop incision check, prn sooner. - Physical Exam Vital Signs Temp Pulse Resp BP Pulse Ox 98.3 F 95 18 107/63 97 06/05/18 08:04 06/05/18 08:04 06/05/18 08:04 06/05/18 08:04 06/05/18 01:56 Oxygen Flow Rate (L/min) 1 Oxygen Delivery Method Room Air Weight: 80.9 kg Body Mass Index (BMI) 30.6 Intake and Output for Last 24 Hours 06/03/18 06/04/18 06/05/18 23:59 23:59 23:59 Intake Total 1685 / 1685 550 / 550 Output Total 1550 / 1550 3900 / 3900 Balance 135 / 135 -3350 / -3350 Discharge Diet: No Restrictions Discharge Activity: May not drive while taking narcotic pain medications., May Shower, May Take a Tub Bath May resume sexual activity in: 4-6 weeks Additional Activity Instructions:: Nothing in the vagina for 4-6 weeks. You may return to work/school in 6 weeks. Call your doctor if your incision/area has: Continuous Slow Oozing, Sudden Increased Bleeding, Increased Pain/ Swelling, Increased Redness, Foul Smelling Discharge Call your doctor if you observe: Fever of 101 or Higher, Inability to urinate, Inability to have a bowel movement, Using more than one pad per hour Home Medications: Medications to take at Discharge Vit No.130/Iron/Folic [ Vitamins] 1 each PO DAILY 05/17/15 Docusate Sodium [Colace] 100 mg PO BID PRN PRN #60 cap 06/03/18 Oxycodone [Oxyir] 5 mg PO Q6H PRN PRN 7 Days #20 tab 06/03/18 Following Prescrptions Were Given to Patient: Oxycodone [Oxyir] 5 mg PO Q6H PRN PRN 7 Days #20 tab PRN Reason: Severe Pain (6-/10) Docusate Sodium [Colace] 100 mg PO BID PRN PRN #60 cap PRN Reason: Constipation Other Amb Orders: Electric breast pump Time Frame: 1 Year, Location: None Selected Please Follow Up With: Paige Dominique MD - [phone] When: Call to make an appointment for an incision check in 2 weeks. Medical Necessity - Tobacco Use Smoking Status: Never smoker Meaningful Use Info Meaningful Use Diagnoses (Choose all that apply): None applicable
--- NOTE | 2018-06-05 11:44 | CASEMGMT ---
Social Work Labor and Delivery Unit Reason for visit: offer support related to delivery process (REJI with caesarian section and uterine rupture) Referral source: Social work identification Summary: Chart reviewed. Met with mother of baby (MOB) Marylou Garcia and father of baby (FOB) Addy Garcia in room. Introduced to self, role and reason for visit to offer support. MOB reports that delivery process was a bit unexpected but that feeling good both physically and emotionally. MOB reports FOB has the rest of the week off of work and then next week MOB's sisters will be coming to help out. MOB's [id number] also lives across the yard so is available to help as needed or indicted. FOB reports to feel family support is adequate. MOB and FOB report to have needed baby supplies for baby, deny any concerns about being able to provide. Addressed history of depression. MOB reports after of first child was feeling stressed for the first two weeks but would not consider self as depressed. FOB shared that did not go as well as planned and decision made to go to formula, to give MOB a rest, which seemed to help things overall. MOB and FOB report is going well so far this time. [place] baby is to be named Rodger and at home MOB and FOB have a 3 year old Sarah (born [birth year] 2015). Chart indicates MOB has an 8th grade reading level, no history of substance use. No indications during social work visit of domestic violence issues; per nursing assessment this was also denied by MOB upon admission. Assessment: MOB sitting in bed, relaxed motor activity, holding baby, calm, and smiling at this writer producer and the baby. MOB pleasant. FOB was on phone initially setting up sieve grader tender appointment and when off the phone did hold the baby and also participated in conversation. MOB and FOB both reports to have adequate support at home and looking forward to returning home. MOB reports awareness that recovery may be slower this time around but prepared to allow others to help out at home if needed. No concerns with home going voiced. Intervention: Offered emotional support and encouragement. Educated to depression and anxiety, risks for such. Provided depression packet to take home with online and local resources for support if needed or desired in the future. Plan: MOB and baby to discharge home today with support from family No other services requested or indicated. -LATA Hameed, FOUNDATION ENGINEER
[2018-06-05 13:37] VITALS: BP 107/58; PULSE 82; RESP 16; TEMP 36.8
[2018-06-06 07:44] LABS: Pathology Specimen OB SEE PATHOLOGY REPORT
== END 2018-06-05 13:45 | disposition home or self-care (01) | DRG 787 ==
PROVIDERS: Obstetrics & Gynecology; Admitting Provider Obstetrics & Gynecology; Visit Provider Obstetrics & Gynecology
DX: O76 Abnormality in fetal heart rate and rhythm complicating labor and delivery (principal); D62 Acute posthemorrhagic anemia; O99.13 Other diseases of the blood and blood-forming organs and certain disorders involving the immune mechanism complicating the puerperium; O90.0 Disruption of cesarean delivery wound; D72.829 Elevated white blood cell count, unspecified; O90.81 Anemia of the puerperium; O34.211 Maternal care for low transverse scar from previous cesarean delivery; O77.0 Labor and delivery complicated by meconium in amniotic fluid; O42.02 Full-term premature rupture of membranes, onset of labor within 24 hours of rupture; O43.893 Other placental disorders, third trimester; Z3A.40 40 weeks gestation of pregnancy; Z37.0 Single live birth; Z87.59 Personal history of other complications of pregnancy, childbirth and the puerperium
CPT/HCPCS: 59025; 59050; 85027; 86850; 86900; 88307; 99218; J7120; A4216; G0378; J2405; J3490